=== PATIENT | male | born 1980 | race African-American/Black ===

== ENCOUNTER → 2016-10-22 | Emergency (ER) | payer MEDICAID | END | disposition left against medical advice (07) | LOC: ER 04:49 | DX: D57.00 Hb-SS disease with crisis, unspecified (principal); Z53.21 Procedure and treatment not carried out due to patient leaving prior to being seen by health care provider ==

== ENCOUNTER 2024-11-17 10:13 | Emergency (ER) | payer MEDICAID ==
[~2024-11-17] VITALS: Ht 170.2 cm; Wt 51.3 kg
[2024-11-17] MEDS ORDERED: TRIO1TP EX (11:17)
[2024-11-17] MEDS ORDERED: HYDR-4924 PO (11:17)
[2024-11-17] MEDS ORDERED: PRED20TA2 PO (11:17)
--- NOTE | 2024-11-17 11:17 | ED.PDOC ---
History of Present Illness(SKN HPI Comments 44-year-old male who presents to the ED for chief complaint of rash. The patient states that he has been having new posterior neck rash for the past few days. Patient denies any new associated soaps shampoo lotions or any new jewelry. Patient otherwise denies any associated symptoms. Patient vitals otherwise stable in the ED Chief Complaint: Rash Time Seen by MD: 10:54 History of Present Illness: Medications, Allergies Allergies: Coded Allergies: Meperidine (Verified Allergy, Unknown, 11/17/24) Home Meds Active Scripts Hydroxyzine HCl (Hydroxyzine Hydrochloride) 25 Mg Tab, 25 MG PO Q8HPRN PRN for 10 Days, #30 TAB 0 Refills One tablet every 8 hours as needed for itchiness Prov:MARLEY KEITA NP 11/17/24 Triamcinolone Acetonide (Triamcinolone Acetonide) 0.1 % Cre, 1 GRAMS EX BID for 5 Days, #60 GRAMS 0 Refills Prov:MARLEY KEITA NP 11/17/24 Prednisone (Prednisone) 20 Mg Tab, 60 MG PO DAILY for 5 Days, #15 TAB 0 Refills Prov:MARLEY KEITA NP 11/17/24 Information Source: Patient Mode of Arrival: Ambulatory Past Medical History PAST MEDICAL HISTORY: Denies Surgical History: Denies all surgeries Family History Family History: Reviewed,noncontributory to illness Social History Smoker: Non-Smoker Alcohol: Denies ETOH Use Drugs: Denies Drug Use Lives In: Home All Other Systems: Reviewed and Negative (See HPI) Was a procedure done? Was a procedure done?: No Differential Diagnosis (INTG) Differential Diagnosis: Atopic dermatitis, Contact Dermatitis, Drug Reaction X-Ray, Labs, Meds, VS Vital Signs Date Time Temp Pulse Resp B/P (MAP) Pulse Ox O2 Delivery O2 Flow Rate FiO2 11/17/24 10:17 97.8 86 16 114/86 94 97.8 X-Ray, Labs, Meds, VS Comment 44-year-old male who presents to the ED for chief complaint of rash. Patient arrives alert and oriented, ABC's intact, afebrile, vital signs stable, saturating well in room air Labs in the ED showed (pertinent+ and then pertinent-) Patient was given:_. Tolerated medications with no adverse reaction. Additional MDM Review of External, Non-ED records: External records reviewed. Discussion with independent historian (EMS, family) history obtained from the patient/parents (if applicable) at bedside Chronic conditions affecting care: None Social determinants of health affecting care: None Consideration of admission (observation or admission): I considered escalation of care to admission for this patient, however given the reassuring workup, the patient is safe for outpatient management. Discussion with the Radiology: No Tests considered but not performed: Prescription medication considered but not given: 12 lead EKG interpretation: Patient Education/Counseling: Diagnosis, Treatment Family Education/Counseling: No Family Present SEPSIS Sepsis Screen Date sepsis recognized/suspect: Nov 17, 2024 Time Sepsis recognized/suspect: 1017 Recent Procedure: No On Antibiotic Therapy: No Respiratory Rate >20: No Heart Rate >90: No Temp<36 C (96.8 F) or >38.3 C: No SBP <90 or MAP <65 mmHG: No New Acute Mental Status Change: No Is the patient on CPAP, BIPAP,: No Vital Signs Date Time Temp Pulse Resp B/P (MAP) Pulse Ox O2 Delivery O2 Flow Rate FiO2 11/17/24 10:17 97.8 86 16 114/86 94 97.8 Departure 1 Departure Time of Disposition: 11:14 Impression: Primary Impression: Irritant dermatitis Disposition: HOME / SELF CARE / HOMELESS Condition: Stable e-Prescriptions Hydroxyzine HCl (Hydroxyzine Hydrochloride) 25 Mg Tab 25 MG PO Q8HPRN PRN for 10 Days, #30 TAB 0 Refills One tablet every 8 hours as needed for itchiness Prov: MARLEY KEITA NP 11/17/24 Triamcinolone Acetonide (Triamcinolone Acetonide) 0.1 % Cre 1 GRAMS EX BID for 5 Days, #60 GRAMS 0 Refills Prov: MARLEY KEITA NP 11/17/24 Prednisone (Prednisone) 20 Mg Tab 60 MG PO DAILY for 5 Days, #15 TAB 0 Refills Prov: MARLEY KEITA NP 11/17/24 Critical Care Note Critical Care Time?: No Stability Stability form required: No Heart Score Heart Score: Heart Score Response (Comments) Value History N/A 0 EKG N/A 0 Age N/A 0 Risk Factors N/A 0 Troponin N/A 0 Total 0 I personally scribed for MARLEY KEITA NP ([email or web address]) on 11/17/24 at 11:37. Electronically submitted by Job Saab ([email or web address]). MARLEY KEITA NP Nov 17, 2024 11:17
[2024-11-17 11:43] VITALS: BP 142/68; PULSE 78; RESP 17; TEMP 98.3; O2SAT 98
== END 2024-11-17 11:45 | disposition home or self-care (01) ==
LOC: ER 10:13
DX: L24.9 Irritant contact dermatitis, unspecified cause (principal); Z88.5 Allergy status to narcotic agent